=== PATIENT | male | born 1965 ===

== ENCOUNTER → 2020-11-20 00:55 | Outpatient (CLI) | payer BC, SELFPAY ==
[2020-11-20 21:02] LABS: SARS-CoV-2 RNA PCR Negative
== END ==
PROVIDERS: PCP Internal Medicine; Visit Provider Internal Medicine Gastroenterology
DX: Z01.812 Encounter for preprocedural laboratory examination (principal); Z20.822 Contact with and (suspected) exposure to COVID-19
CPT/HCPCS: C9803; U0003; U0005

== ENCOUNTER 2020-11-23 02:46 | Day surgery (SDC) | payer BC, SELFPAY ==
[2020-11-11 13:31] VITALS: BMI 26.4
[2020-11-23 09:26] VITALS: BP 125/96; PULSE 124; RESP 20; TEMP 36.6; O2SAT 97; BMI 25.4
[2020-11-23] MEDS: LACTATED RINGERS 1,000 ML 150 ML IV CONT (09:37)
--- NOTE | 2020-11-23 10:14 | WPDANESEPPF ---
Anes - Initial Pre Proc Eval Procedure: Operation Date: 11/23/20 10:30 Proposed Procedures p Screening Colonoscopy - Ashish Osborne MD Date/Time: 11/23/20 10:14 Surgeon: Ashish Osborne MD Pre Op Diagnosis: neoplasm screening Patient Data Age: 55 Gender: M Height: 5 ft 8 in Weight: 76.1 kg Last Vital Signs Temp 97.9 F 11/23/20 09:26 Pulse 124 H 11/23/20 09:26 Resp 20 11/23/20 09:26 BP 125/96 H 11/23/20 09:26 Pulse Ox 97 11/23/20 09:26 Allergies Allergy/AdvReac Type Severity Reaction Status Date / Time No Known Allergies Allergy Verified 11/11/20 13:31 Home Medications Medication Instructions Recorded Confirmed Type No Home Medications 09/11/20 11/11/20 History Patient hx anesthesia problems: none Family hx anesthesia problems: none PMFSH Past Medical History Medical History (Updated 09/11/20 @ 14:36 by Aly Weinstein APRN) History of COVID-19 Surgical History Surgical History (Updated 09/11/20 @ 14:05 by Aly Weinstein APRN) History of repair of rotator cuff History of surgical removal of ganglion cyst Social History Social History (Updated 09/11/20 @ 14:07 by Aly Weinstein APRN) Smoking status: Current some day smoker Tobacco type: cigars Alcohol intake: current Drinks per week: 5 Substance use: former Substance use type: marijuana Living arrangements: with family Additional occupation/education comments: Works at [employer] Gender identity (if verbalized by the patient): Male Spiritual care concerns: No Anes - Eval Final PreProcedure Day of Procedure 11/23/20 10:14 Patient weight: overweight Heart: regular rate and rhythm Lungs: clear to auscultation Airway: Mallampati scale class II Neurological: alert and oriented Last oral intake: >/= 8 hours ASA classification: II Emergent: no Anesthetic plan: proceed Anesthesia type and monitoring: general GIVS and standard monitoring Informed Consent: The patient's anesthetic plan and its attendant risks and benefits were discussed with the patient/family/POA. Questions were solicited and answers provided to the satisfaction of the patient/family/POA.
[2020-11-23 10:21] VITALS: PULSE 91
--- NOTE | 2020-11-23 10:30 | P.HP_ITS ---
History of Present Illness History of Present Illness Consent: Risks, benefits, and alternatives have been discussed and questions answered. Patient agrees to proceed with procedure. Chief complaint: neoplasm screening Narrative: Aly Saucedo is a 55 year old male referred for colon cancer screening Review of Systems Review of Systems: All systems reviewed & are unremarkable except as noted in HPI and below PMFSH Past Medical History Medical History History of COVID-19 Surgical History Surgical History History of repair of rotator cuff History of surgical removal of ganglion cyst Social History Social History Smoking status: Current some day smoker Tobacco type: cigars Alcohol intake: current Drinks per week: 5 Substance use: former Substance use type: marijuana Living arrangements: with family Additional occupation/education comments: Works at [employer] Gender identity (if verbalized by the patient): Male Spiritual care concerns: No Meds Home Medications and Allergies Home Medications Medication Instructions Recorded Confirmed Type No Home Medications 09/11/20 11/11/20 History Allergies Allergy/AdvReac Type Severity Reaction Status Date / Time No Known Allergies Allergy Verified 11/11/20 13:31 Vital Signs Vital Signs - 24 hr 11/23/20 09:26 11/23/20 10:21 Temperature 36.6 C Pulse Rate 124 H 91 Respiratory Rate 20 Blood Pressure 125/96 H Pulse Oximetry 97 Exam Resp: Auscultation: clear to auscultation bilaterally Cardio: Rate: regular rate Rhythm: regular rhythm GI: GI Palp: Yes Soft to palpation and No Tenderness to palpation present (GI) Assessment and Plan Assessment and plan (1) Screening for colon cancer: Code(s): Z12.11 - Encounter for screening for malignant neoplasm of colon Status: Acute Assessment and Plan: Colonoscopy with possible biopsy or polypectomy or cautery or injection of substances.
[2020-11-23 11:00] VITALS: BP 115/74; PULSE 95; RESP 18; O2SAT 96
[2020-11-23 11:10] VITALS: BP 111/79; PULSE 85; RESP 20; O2SAT 96
[2020-11-23 11:20] VITALS: BP 126/87; PULSE 80; RESP 18; O2SAT 100
== END 2020-11-23 11:36 | disposition home or self-care (01) ==
PROVIDERS: PCP Internal Medicine; Visit Provider Internal Medicine Gastroenterology
PROC: 0DJD8ZZ Inspection of Lower Intestinal Tract, Via Natural or Artificial Opening Endoscopic (ICD-10-PCS; CPT 45378; principal; 2020-11-23 10:30)
DX: Z12.11 Encounter for screening for malignant neoplasm of colon (principal); K57.30 Diverticulosis of large intestine without perforation or abscess without bleeding; F17.290 Nicotine dependence, other tobacco product, uncomplicated; Z86.16 Personal history of COVID-19
CPT/HCPCS: 45378; J2001; J2704; J7120

== ENCOUNTER 2022-10-10 13:33 | Outpatient (CLI) | payer BC, SELFPAY ==
--- NOTE | ~2022-10-10 | XR_ITS ---
EXAM: XR lumbar spine 2-3V DATE: 10/10/2022 14:07 HISTORY: M54.50 - Low back pain, unspecified . COMPARISON: None available. FINDINGS: Rotatory scoliosis. 5 nonrib-bearing lumbar-type vertebral bodies. Pedicles intact. 2-3 mm retrolisthesis at L2-3.. Incidental note of mild possibly physiologic anterior wedge deformity at T11 and T12. Lumbar vertebral body heights preserved. Multilevel disc space narrowing and marginal osteo phytosis, severe at L2-3 where there is vacuum phenomenon. Multilevel facet sclerosis and hypertrophy . Normal facets and posterior elements. No fracture or dislocation. IMPRESSION: Rotatory lumbar scoliosis. Grade 1 retrolisthesis of L2 on L3. Multilevel degenerative di sc disease, severe at L2-3. Multilevel lower lumbar facet arthropathy. Reviewed, dictated and finalized at location K. IMPRESSION: Rotatory lumbar scoliosis. Grade 1 retrolisthesis of L2 on L3. Mult ilevel degenerative disc disease, severe at L2-3. Multilevel lower lumbar facet arthropathy.
--- NOTE | ~2022-10-10 | XR_ITS ---
EXAM: XR hip RT min 2V DATE: 10/10/2022 14:32 HISTORY: M25.551 - Pain in right hip . COMPARISON: None available. FINDINGS: Normal mineralization. No fracture or dislocation. No lytic or blastic lesion. Lumbar dege nerative disc disease. Mild subchondral sclerosis and osteophytosis at the right hip joint mild scatt ered pelvic and hip enthesopathy. No erosion or periosteal change. Soft tissues within normal limits. IMPRESSION: Mild right hip osteoarthritis. No acute osseous finding in the right hip. Reviewed, dictated and finalized at location K. IMPRESSION: Mild right hip osteoarthritis. No acute osseous finding in the righ t hip.
== END 2022-10-10 13:34 | disposition home or self-care (01) ==
LOC: ANHIMG 13:37
PROVIDERS: PCP Internal Medicine; Visit Provider Internal Medicine
DX: M41.9 Scoliosis, unspecified (principal); M51.36 Other intervertebral disc degeneration, lumbar region; M16.11 Unilateral primary osteoarthritis, right hip
CPT/HCPCS: 72100; 73502

== ENCOUNTER → 2023-03-15 11:52 | Outpatient (CLI) | payer BC, SELFPAY ==
--- NOTE | ~2023-03-15 | XR_ITS ---
EXAMINATION: XR fl inj hip RT for MR/CT DATE: 03/15/2023 13:28 INDICATION: Right hip pain TECHNIQUE: A time-out was performed to verify the patient's name, date of , and procedure to b e performed. The procedure including the risks and benefits was discussed with the patient. Risks dis cussed included bleeding and infection. The patient understood the risks and agreed to proceed. The s kin overlying the right hip joint was prepared and draped in usual sterile fashion. The skin and subc utaneous tissues were infiltrated with 1% lidocaine for local anesthesia. A 22 G needle was advanced under fluoroscopic guidance into the joint. Injectate consisting of 16 mL of 1:200 0.1 mmol/kg Multih ance, 1:3 1% lidocaine, and 1/5 Omnipaque 350 was instilled. The needle was removed and the entry sit e was cleaned and dressed. There were no immediate complications. Fluoroscopy exposure time was 0.5 m inutes. The DAP for this procedure was 22.52 Gycm2. FINDINGS: Real-time fluoroscopy demonstrates the needle and contrast in the right hip joint. IMPRESSION: 1. Successful right hip joint injection of contrast for subsequent MR arthrography. Reviewed, dictated and finalized at location B. IMPRESSION: 1. Successful right hip joint injection of contrast for subsequent MR arthrogra phy.
--- NOTE | ~2023-03-15 | MR_ITS ---
EXAMINATION: MR hip RT w con DATE: 03/15/2023 14:09 INDICATION: Right hip and groin pain. Labral tear. TECHNIQUE: Magnetic resonance imaging (MRI) of the right hip was performed without intravenous contr ast. Sequences included full-field axial PD-weighted FS FSE and T1-weighted FSE, coronal of the pelvi s with PD-weighted FS FSE, small field of view of the right hip with axial PD-weighted FS FSE, sagit silvio PD-weighted FS FSE and coronal PD weighted FS FSE. Additional radial T1-weighted FGR oriented ort hogonal to the acetabular rim were obtained for evaluation of the labrum. COMPARISON: None FINDINGS: Bones/labrum/cartilage: Mild leftward tilt of the visualized lower lumbar spine with moderate lower lumbar spondylosis. Align ment is otherwise normal. No fracture, avascular necrosis or pathologic marrow replacing process. Li near increased signal consistent with a tear at the base of the superolateral right acetabular labrum transition to more amorphous degenerative tearing with macerated appearance at the anterosuperior la danya. There is full and near full-thickness chondral ulceration with prominent underlying subarticula r edema-like and cystlike changes extending along the anterior to the anterosuperior and superolatera l right acetabulum. There is additional deep chondral ulceration across the cephalad aspect of the fe moral head. Subtle flattening of the articular cortex with minimal subarticular edema-like signal dusty nge at the posterosuperior aspect of the femoral head. The left hip is not diagnostically evaluated o n the larger [id number] images however there does appear to be a tear at the base of the superolat eral left acetabular labrum. Fluid: Physiologic amount of fluid in the left hip joint. The injected contrast in the right hip joint space outlines a somewhat globular region of nonenhanced, T2 hyperintense likely synovitis at the anteroin ferior joint space. Small bilateral hydroceles, left greater than right. Soft tissues: There is increased fluid signal as well as T1 hyperintense extravasated contrast at the iliopsoas and sartorius muscles extending along the injection tract. Otherwise normal and symmetric muscle bulk an d signal in the pelvis and visualized proximal thighs. The iliopsoas, gluteal and left sided proximal hamstring tendons are normal. Chronic avulsion and distal retraction of the right hamstring tendons from the ischial tuberosity which is described on MRI dated 03/03/2008, images of which are unavailable at this time for comparison. Limited evaluation of visceral organs of the pelvis is unremarkable. N o pathologically enlarged pelvic/inguinal lymphadenopathy. IMPRESSION: 1. Moderate right hip osteoarthritis with extensive moderate and high-grade chondromalacia most promi nent along the acetabulum and associated tear of the anterior to superolateral right acetabular labru m. 2. Suggestion of a tear of the contralateral left acetabular labrum which is not diagnostically evalu ated on the larger [id number] images. 3. Chronic avulsion at the right ischial tuberosity origin of the proximal right hamstring tendons, p reviously described on MRI dated 03/03/2008. Reviewed, dictated and finalized at location A. IMPRESSION: 1. Moderate right hip osteoarthritis with extensive moderate and high-grade cho ndromalacia most prominent along the acetabulum and associated tear of the ante rior to superolateral right acetabular labrum. 2. Suggestion of a tear of the contralateral left acetabular labrum which is no t diagnostically evaluated on the larger [id number] images. 3. Chronic avulsion at the right ischial tuberosity origin of the proximal righ t hamstring tendons, previously described on MRI dated 03/03/2008.
== END ==
PROVIDERS: PCP Chiropractor; Visit Provider Chiropractor
DX: M16.11 Unilateral primary osteoarthritis, right hip (principal)
CPT/HCPCS: 20610; 73722; 77002; A9577